=== PATIENT | female | born 1965 | race Hispanic/Latino ===

== ENCOUNTER → 2016-07-10 | Outpatient (CLI) | payer OTHER ==
[~2016-07-10] VITALS: Ht 160 cm; Wt 81.6 kg
[~2016-07-10] MED LIST: ADVIL200 MG PO; BUPROPION HCL150 M2 PO; FISH OIL OMEGA1 EACH PO; LOSARTAN POTAS100 MG PO; LYRICA75 MG PO; MULTIPLE VITAM1 EACH PO; OMEPRAZOLE40 M1 PO; PRILOSEC40 MG PO; RANITIDINE HCL150 M1 PO; RANITIDINE HCL150 MG PO; SEROQUEL50 MG PO; SUPRENZA ODT30 MG PO; TYLENOL REGULA325 MG PO; ULTRAM50 MG PO; VITAMIN D5000 UNI1 PO; [UNRECOGNIZED DRUG - OTHER] PO
== END | disposition home or self-care (01) ==
LOC: AMB 11:18
PROC: 0DJD8ZZ Inspection of Lower Intestinal Tract, Via Natural or Artificial Opening Endoscopic (ICD-10-PCS; principal; 2016-07-10)
DX: Z12.11 Encounter for screening for malignant neoplasm of colon (principal); I10 Essential (primary) hypertension; K21.9 Gastro-esophageal reflux disease without esophagitis; M19.90 Unspecified osteoarthritis, unspecified site
CPT/HCPCS: 93005; B4087; J2250; J3010